=== PATIENT | female | born 1995 | race Caucasian/White ===

== ENCOUNTER 2021-04-05 09:48 | Inpatient (IN) ==
--- NOTE | 2021-03-14 11:32 | PAT Medication Instructions ---
Medication Instructions Date of Service March 14, 2021 Home Medications Medications norethindrone 1 mg-ethinyl estradiol 20 mcg (21)-iron 75 mg (7) tablet (04/20 ()) 1 tab PO HS Continue as directed norethindrone 1 mg-ethinyl estradiol 20 mcg (21)-iron 75 mg (7) tablet (04/20 ()) 1 tab PO HS (unless surgeon directs otherwise) OTHERWISE NOTHING TO EAT OR DRINK AFTER MIDNIGHT Other Notes If you have any questions please call us at [phone] or [phone] or [phone] or [phone]
--- NOTE | 2021-03-17 13:11 | Anesthesiology Consultation ---
Date of Service March 17, 2021 Assessment & Plan (1) Encounter for pre-operative examination: - surgeon ordered medical clearance. - check urine am DOS. - COVID screening: Per assessment on 03/17/2021: Travel screen negative, no known COVID-19 positive contacts or current COVID-19 related symptoms in past 2 weeks. Surgeon arranging preop COVID testing, scheduled 03/29/2021. Awaiting results. - Pt aware surgery has been cancelled due to current COVID surge, states would like to complete appointment and testing today, aware if surgery re-scheduled past 60 days will likely need to repeat labs. Chart Review Chart Review: Acceptable Risk for Surgery (pending pre-op medical clearance) and Patient seen in Pre Admission Testing Teaching & Discussion Pre-Anesthesia Teaching/Discussion Notes: Instructed NPO after midnight before surgery, except medications with 15 cc of water. Medication instructions provided according to the PAT guidelines. History Surgery Operation Date: 03/31/21 07:45 Proposed Procedures p L5-S Decompression Fusion, Spinal Cord Monitoring - Van Rondon DO Height/Weight Height: 5 ft 5 in Weight: 61.7 kg Allergies Allergy/AdvReac Type Severity Reaction Status Date / Time pineapple Allergy Intermediate Hives Verified 03/14/21 10:20 fluoxetine [From Prozac] Allergy Mild nausea/vomi Verified 03/14/21 10:20 ting Medications Home Medications Medication Instructions Recorded Confirmed Last Taken norethindrone 1 mg-ethinyl 1 tab PO HS 03/14/21 03/14/21 Unknown estradiol 20 mcg (21)-iron 75 mg (7) tablet (04/20 (28)) Past Medical History Medical History Anxiety no meds Chronic back pain Patient denies h/o stroke, seizures, heart attack, heart failure, DM, HTN, blood clots or blood transfusions. Exercise / Class Metabolic Activity II 4-5 Yardwork/Stairs/Walk up hill (slow 1 FOS d/t back pain, denies CP or SOB) Past Family History Family History Other No family history of adverse response to anesthesia Past Surgical History Surgical History History of microdiscectomy lumbar History of tonsillectomy and adenoidectomy History of tooth extraction Past Anesthesia History No Hx of Anesthesia Complications and No Family Hx of Anesthesia Complications History of PONV No Hx of PONV and No Hx of Motion Sickness Social History Smoking Status: Never smoker Do You Dip or Chew Tobacco: No Hx Alcohol Use: Yes alcohol intake frequency: holidays/special occasions only Hx Substance Use: No substance use type: does not use Review of Systems Occasional snoring, denies witnessed apneas or sleep studies. Patient denies chest pain, shortness of breath, dyspnea on exertion, reflux, dizziness, lightheadedness, fever, chills, cough, wheezing, or palpitations. Physical Exam Vital Signs Vitals BP 100/64 (She states this is usual range for BP) P 97 TEMP 97.5 SP02 100% on RA RESP 17 Physical Limited cervical extension range of motion without pain Full TMJ range of motion TMD 3.5 finger breaths Mallampati Score 3 Dentition: intact, missing upper right back and lower left back; denies loose or chipped teeth, caps/crowns, implants or bridges Lungs: normal respiratory effort. Clear throughout to auscultation, no adventitious breath sounds Cardiac: regular rate and rhythm, no murmurs noted Carotid arteries: negative bruit bilat Extremities: no distal extremity edema Lab Results Anesthesia Preop Results Results Anesthesia Widget: WBC 8.23 K/uL (4.8-10.8) 03/17/21 Hgb 13.4 g/dL (12.0-16.0) 03/17/21 Hct 39.9 % (37-47) 03/17/21 Plt 203 K/uL (130-400) 03/17/21 Na 140 mmol/L (136-145) 03/17/21 K 3.7 mmol/L (3.5-5.1) 03/17/21 Cl 109 mmol/L (98-107) H 03/17/21 CO2 26 mmol/L (21-32) 03/17/21 BUN 11 mg/dl (7-18) 03/17/21 Creat 0.94 mg/dl (0.6-1.2) 03/17/21 Glucose Level 77 mg/dl (70-99) 03/17/21 PT 10.0 Seconds (9.0-12.0) 03/17/21 PTT 30.4 Seconds (21.0-31.0) 03/17/21 INR 1.0 (0.9-1.1) 03/17/21 Urine Color Yellow 03/17/21 Urine Appearance Clear (Clear) 03/17/21 Urine pH 7.0 (4.5-7.5) 03/17/21 Urine Specific [place] 1.009 (1.000-1.030) 03/17/21 Urine Protein Negative (Negative) 03/17/21 Urine Glucose (UA) Negative (Negative) 03/17/21 Urine Ketones Negative (Negative) 03/17/21 Urine Blood Negative (Negative) 03/17/21 Urine Nitrite Negative (Negative) 03/17/21 Urine Bilirubin Negative (Negative) 03/17/21 Urine Urobilinogen Negative (Negative) 03/17/21 Urine Leukocyte Esterase Trace (Negative) H 03/17/21 Urine WBC (Auto) 1-5 /hpf (0-5) 03/17/21 Urine RBC (Auto) 0-4 /hpf (0-4) 03/17/21 Urine Hyaline Casts (Auto) 0 /lpf (0-5) 03/17/21 Urine Epithelial Cells (Auto) 10-20 /lpf (0-5) H 03/17/21 Urine Bacteria (Auto) Negative (Negative) 03/17/21 Blood Type A Positive 03/17/21 Antibody Screen NEGATIVE 03/17/21 Testing Electrocardiogram Date: 03/17/21 Normal sinus rhythm, rate 69 bpm. Chest X-Ray Date: 03/17/21 No acute chest disease.
--- NOTE | 2021-03-29 15:16 | History & Physical Report ---
Date of Service March 29, 2021 Assessment & Plan (1) Lumbar disc herniation with radiculopathy: Plan: Assessment recurrent lumbar disc condition L5-S1 with progressive neuro deficits including weakness. Plan at this time in light of her presentation and decline in status I am recommending urgent lumbar decompression and fusion to avoid permanent neuro deficit prickly at such young age. Risk benefits pros cons of turns were outlined in detail. History of Present Illness Chief Complaint: Back and bilateral leg pain with weakness Primary Care Provider: NO PCP This is a 26-year-old female that is undergone extensive course of nonoperative care and continues to complain of bilateral leg numbness exacerbated with any activity standing walking. She has bilateral sciatica left worse than right. She does have a history of undergoing laminectomy in 2017 and had her decline began roughly in September of this year. Allergies Allergy/AdvReac Type Severity Reaction Status Date / Time pineapple Allergy Intermediate Hives Verified 03/14/21 10:20 fluoxetine [From Prozac] Allergy Mild nausea/vomi Verified 03/14/21 10:20 ting Home Medications Medication Instructions Recorded Confirmed Type norethindrone 1 mg-ethinyl 1 tab PO HS 03/14/21 03/14/21 History estradiol 20 mcg (21)-iron 75 mg (7) tablet (04/20 (28)) Past Med/Surg History Medical History Anxiety no meds Chronic back pain Surgical History History of microdiscectomy lumbar History of tonsillectomy and adenoidectomy History of tooth extraction Family History Other No family history of adverse response to anesthesia Social History Smoking Status: Never smoker Second Hand Exposure: No; Hx Alcohol Use: Yes Hx Substance Use: No Preferred Language: Tajik Communication Ability: Effective Clinical Advisor Required: No Beliefs That Will Affect Care: None Current Living Situation: Spouse and Family Current Living Situation Comment: Lives with and 4 kids Feels Safe at Home: Yes Assistive Devices: Contacts and Glasses Physical Exam Physical Exam: On exam she is in obvious distress. She exhibits severe tension signs with straight leg raising bilaterally. There is evidence of deficits at L4 minus over 5 to left dorsiflexion extensor hallucis longus with 5 or 5 quadriceps bilaterally.
[~2021-04-05 09:48] MED LIST: ACETAMINOPHEN 500 MG TAB PO SCH; CeleBREX 200 MG CAP PO SCH; GABAPENTIN 900 MG DOSE PO SCH; LR 15ML/HR IV SCH; ceFAZolin 1000MG 1,000 MG/7.5 ML SYR IV SCH
[2021-04-05] MEDS ORDERED: PROMETHAZINE HCL 12.5 MG in SODIUM CHLORIDE 0.9% 50 ML IV PRN ×2 (12:18→16:18)
[2021-04-05] MEDS ORDERED: ONDANSETRON INJ 2 MG/ML 2 ML VIAL IV PRN ×2 (12:18→16:18)
[2021-04-05] MEDS ORDERED: HYDROmorphone INJ 2 MG/ML SYR/VIAL IV PRN (12:18)
[2021-04-05] MEDS ORDERED: ATROPINE SULFATE 0.1 MG/ML 10ML SYR IV PRN (12:18)
[2021-04-05] MEDS ORDERED: ePHEDrine sulfate 50 MG/ML AMP IV PRN (12:18)
[2021-04-05] MEDS ORDERED: SCOPOLAMINE 1 MG TDSY TD ONE ×2 (12:18→12:21)
--- NOTE | 2021-04-05 12:41 | History & Physical Bridge Note ---
Date of Service April 05, 2021 History & Physical Bridge Note I have examined the patient, reviewed the History & Physical and in the interval since the performance of the History & Physical I have noted the following changes of clinical significance: no changes noted
--- NOTE | 2021-04-05 12:42 | History & Physical Report ---
Date of Service April 05, 2021 Assessment & Plan (1) Lumbar disc herniation with radiculopathy: Plan: L5-S1 decompression fusion History of Present Illness Chief Complaint: Back and bilateral leg pain Primary Care Provider: NO PCP This is a 26-year-old female who presents with concerns of back and leg pain. Failing since course of nonoperative care is here for surgical invention. Allergies Allergy/AdvReac Type Severity Reaction Status Date / Time pineapple Allergy Intermediate Hives Verified 04/05/21 10:18 fluoxetine [From Prozac] Allergy Mild nausea/vomi Verified 04/05/21 10:18 ting Home Medications Medication Instructions Recorded Confirmed Type norethindrone 1 mg-ethinyl 1 tab PO HS 03/14/21 04/05/21 History estradiol 20 mcg (21)-iron 75 mg (7) tablet (04/20 (28)) Past Med/Surg History Medical History Anxiety no meds Chronic back pain Surgical History History of microdiscectomy lumbar History of tonsillectomy and adenoidectomy History of tooth extraction Family History Other No family history of adverse response to anesthesia Social History Smoking Status: Never smoker Second Hand Exposure: No; Do You Dip or Chew Tobacco: No; Tobacco Cessation Education Requested by Patient: No Hx Alcohol Use: Yes Hx Substance Use: No Preferred Language: Sami Communication Ability: Effective Credit Administration Officer Required: No Beliefs That Will Affect Care: None Current Living Situation: Spouse and Family Current Living Situation Comment: Lives with and 4 kids Other Information That Helps Us Care for You: No Feels Safe at Home: Yes Safety Concerns: Feels Safe At This Time Assistive Devices: Contacts and Glasses Physical Exam Physical Exam: Patient is alert and oriented Heart regular rhythm Lungs clear Results & Data ([facility]) Vital Signs (Past 12 Hours) Vital Signs Temp Pulse Resp BP Pulse Ox 04/05/21 10:19 36.9 C 94 H 18 132/77 99
[2021-04-05] MEDS ORDERED: EPINEPHrine INJ 1 MG/ML AMP ONE (12:53)
[2021-04-05] MEDS ORDERED: BUPIVACAINE 0.5 % 5 MG/1 ML MPF 30ML VIAL ONE (12:54)
[2021-04-05] MEDS ORDERED: ROCURONIUM BROMIDE 10 MG/ML 5 ML VIAL IV ONE ×2 (12:56→13:57)
[2021-04-05] MEDS ORDERED: PROPOFOL IV EMULSION 10 MG/ML 20 ML VIAL IV ONE (12:56)
[2021-04-05] MEDS ORDERED: LIDOCAINE 2% 2 ML VIAL/AMP(20MG/ML) INFIL ONE (12:56)
[2021-04-05] MEDS ORDERED: DEXAMETHASONE SOD INJ 4 MG/ML VIAL ONE (12:56)
[2021-04-05] MEDS ORDERED: ONDANSETRON INJ 2 MG/ML 2 ML VIAL ONE (12:56)
[2021-04-05] MEDS ORDERED: MIDAZOLAM HCL 1 MG/ML 2ML VIAL ONE (12:57)
[2021-04-05] MEDS ORDERED: fentaNYL citrate 100 MCG/2 ML VIAL ONE (12:57)
[2021-04-05] MEDS ORDERED: FLOSEAL HEMOSTATIC MATRIX 10ML TOP ONE (13:47)
[2021-04-05] MEDS ORDERED: GLYCOPYRROLATE 0.2 MG/ML VIAL ONE (13:58)
[2021-04-05] MEDS ORDERED: NEOSTIGMINE METHYLSULFATE 1 MG/ML 10ML VIAL ONE (13:58)
--- NOTE | 2021-04-05 14:37 | Operative Report ---
Post Operative Report Pre & Post Diagnosis Operation Date: 04/05/21 11:35 Pre-Op Diagnosis: Lumbar Disc Herniation with Radiculopathy L5-S1 Post-Op Diagnosis: Lumbar Disc Herniation with Radiculopathy L5-S1 I identified the patient and participated in the time-out.: Yes Procedure Operation Date: 04/05/21 11:35 Actual Procedures #1 revision decompression with bilateral medial facetectomies and foraminotomies L5-S1. #2 posterior spinal fusion L5-S1. #3 placement posterior instrumentation L5-S1. #4 interbody fusion L5-S1. #5 placement of titanium 11 x 26 mm cage at L5-S1. #6 placement of locally harvested morselized autograft and posterior gutters. #7 placement of I factor combined with V toss in the interbody space and posterior lateral gutters. Surgeon Van Rondon, Bedspread Inspector [employer] [place] Estimated Blood Loss 50 Findings Consistent with Post-Op Diagnosis Specimens None Indications This is a 26-year-old female presents with above-mentioned diagnosis after failing extensive course of nonoperative care is here for the above-mentioned procedure. Description of Procedure Patient was met with identified informed consent obtained. Patient was then taken to the operative suite underwent a patient placed in a prone position the [place] table top Buster frame. All bony prominences well-padded eyes inspected to ensure no external pressure placed upon the. This point the lumbar spine was prepped and draped in a sterile fashion. Sharp dissection with the assistance of Bovie cautery was performed down to and exposing the remaining lamina transverse processes of L5 and the sacral ala bilaterally. From caudal to cephalad fashion revision complete laminectomy of L5 was performed including bilateral medial facetectomies and foraminotomies addressing all spinal stenosis. Pedicle screws were then placed in L5 and S1 levels bilaterally with assistance of fluoroscopy and the properly sized ara placed. By way of a transforamen approach on the right complete discectomy of L5-S1 was performed endplates curetted to subcortical being bone and the 11 x 26 mm titanium cage filled with I factor tapped in position. The rods then compressed locked into final position bilaterally. Transverse processes of L5 and sacral ala burred to subcortical bleeding bone. I factor combined with V toss and locally harvested morselized autograft was placed in the posterior gutters. 15 round JAYLON drain inserted. The incision was then closed with 1 Vicryl the fascia 2-0 Vicryl subcutaneously and 4 Monocryl for final skin closure. Steri-Strip sterile dressing was placed. Patient waken taken PACU stable condition. Please note spinal cord monitoring was utilized at the procedure no changes noted. Lastly [employer] [place] was present at the entire surgery and while the patient positioning complex portions of the surgery and final skin closure. I attest to the content of the Intraoperative Record and any orders documented therein. Any exceptions are noted below.
--- NOTE | 2021-04-05 14:48 | Fluoroscopy Report ---
FL lumbar spine 2-3V CLINICAL HISTORY: L5-S1 decompression and fusion COMPARISON STUDY: None. FLUOROSCOPY TIME: 24 seconds. FINDINGS: 2 views of the lumbar spine demonstrate posterior decompression and fusion at L5-S1 with pe dicle screws and rods. A disc spacer is in place. The hardware appears intact. IMPRESSION: Fluoroscopic assistance provided for L5-S1 posterior decompression and fusion ACT 112: Negative or not required by law. Electronically signed by: Erik Russell M.D. 04/05/2021 2:47 PM
[2021-04-05] MEDS: fentaNYL citrate 100 MCG/2 ML VIAL IV PRN ×2 (15:00→15:15)
--- NOTE | 2021-04-05 15:37 | Anesthesiology Progress Note ---
Date of Service April 05, 2021 Anesthesia Post Procedure Vital Signs Vital Signs: Temp Pulse Pulse Resp BP Pulse Ox 04/05/21 15:30 36.3 C L 60 97 H 104/60 100 04/05/21 15:20 60 99 H 102/61 100 04/05/21 15:10 60 21 104/58 L 99 04/05/21 15:00 66 12 109/67 100 04/05/21 14:50 36.3 C L 84 20 107/65 100 04/05/21 10:19 36.9 C 94 H 18 132/77 99 Pain Intensity Back: Pain Intensity: 2 Transfer of Care Handoff Completed per policy Notes Mental Status: alert / awake / arousable and participated in evaluation Patient Amnestic to Procedure: Yes Nausea / Vomiting: adequately controlled Pain: adequately controlled Airway Patency, RR, SpO2: stable & adequate BP & HR: stable & adequate Hydration State: stable & adequate Anesthetic Complications: no major complications apparent and Pt Satisfied with anesthetic care
[2021-04-05] MEDS ORDERED: diphenhydrAMINE Capsule 25 MG CAP PO PRN (16:18)
[2021-04-05] MEDS ORDERED: DO NOT ADMINISTER PNEUMOCOCCAL VACCINE PRN (16:18)
[2021-04-05] MEDS ORDERED: HYDROmorphone INJ 1 MG/ML SYRINGE IV PRN (16:18)
[2021-04-05] MEDS ORDERED: LORazepam 0.5 MG/1 ML VIAL IV PRN (16:18)
[2021-04-05] MEDS ORDERED: MAGNESIUM HYDROXIDE SUSP 30 ML UDC PO PRN (16:18)
[2021-04-05] MEDS ORDERED: NALOXONE HCL 0.4 MG/1 ML VIAL/CARP IV PRN (16:18)
[2021-04-05] MEDS ORDERED: METOCLOPRAMIDE HCL INJ 5 MG/ML 2 ML VIAL IV PRN (16:18)
[2021-04-05] MEDS ORDERED: DO NOT ADMINISTER FLU VACCINE PRN (16:18)
[2021-04-05] MEDS ORDERED: bisacodyL 10 MG SUPP PR PRN (16:18)
[2021-04-05] MEDS ORDERED: ONDANSETRON 4 MG OD TAB PO PRN (16:18)
[2021-04-05] MEDS ORDERED: hydrOXYzine HCl 25 MG TAB PO PRN (16:18)
[2021-04-05] MEDS ORDERED: LORazepam 0.5 MG TAB PO PRN (16:18)
[2021-04-05] MEDS ORDERED: FAMOTIDINE 20 MG TAB PO PRN (16:18)
[2021-04-05] MEDS ORDERED: SOD PHOSPHATE/SOD BIPHOSPHATE ENEMA 132 ML BTL PR PRN (16:18)
[2021-04-05] MEDS ORDERED: ACETAMINOPHEN 500 MG TAB PO PRN (16:18)
[2021-04-05] MEDS ORDERED: ALUMINUM/MAGNESIUM SUSP 30 ML UDC PO PRN (16:18)
[2021-04-05] MEDS ORDERED: HYDROmorphone INJ 0.5 MG/0.5 ML SYR IV PRN (16:18)
[2021-04-05] MEDS: CHECK SCOPOLAMINE PATCH PLACEMENT SCH ×2 (17:00→23:08)
[2021-04-05] MEDS: KETOROLAC TROMETHAMINE 15 MG/ML VIAL IV SCH ×2 (17:00→22:36)
[2021-04-05] MEDS: LACTATED RINGER'S 1,000 ML IV SCH (17:01)
[2021-04-05] MEDS: traMADol HCL 50 MG TABLET PO PRN (19:49)
[2021-04-05] MEDS: ACETAMINOPHEN 1,000 MG/100 ML VIAL IV PRN (19:50)
[2021-04-05] MEDS: DOCUSATE SODIUM/SENNA 50/8.6MG TAB PO SCH (20:42)
[2021-04-05] MEDS: ceFAZolin 1000MG 1,000 MG/7.5 ML SYR IV SCH (22:36)
[2021-04-06] MEDS: LACTATED RINGER'S 1,000 ML IV SCH ×2 (03:13→13:39)
[2021-04-06] MEDS: traMADol HCL 50 MG TABLET PO PRN (05:37)
[2021-04-06] MEDS: ACETAMINOPHEN 1,000 MG/100 ML VIAL IV PRN (05:38)
[2021-04-06] MEDS: ceFAZolin 1000MG 1,000 MG/7.5 ML SYR IV SCH (05:38)
[2021-04-06] MEDS: KETOROLAC TROMETHAMINE 15 MG/ML VIAL IV SCH ×2 (05:40→10:47)
[2021-04-06] MEDS: POLYETHYLENE (MIRALAX) 17 GM PACK PO SCH ×4 (05:51→23:09)
[2021-04-06 06:11] LABS: Basophils # (auto) 0.01 K/uL (0-0.2); Basophils % (auto) 0.1 %; Eosinophils # (auto) 0.01 K/uL (0-0.5); Eosinophils % (auto) 0.1 %; Hematocrit (blood only) 34.1 % (37-47); Hemoglobin 11.4 g/dL (12.0-16.0); Immature Granulocytes # (auto) 0.02 K/uL (0.00-0.02); Immature Granulocytes % (auto) 0.2 %; Lymphocytes % (auto) 11.7 %; Mean Corpuscular Hemoglobin 31.2 pg (25-34); Mean Corpuscular Hgb Conc 33.4 g/dL (32-36); Mean Corpuscular Volume 93.4 fL (80-100); Mean Platelet Volume 11.1 fL (7.4-10.4); Monocytes # (auto) 0.88 K/uL (0.11-0.59); Monocytes % (auto) 6.9 %; Neutrophils # (auto) 10.39 K/uL (1.4-6.5); Platelet Count 204 K/uL (130-400); RDW Coefficient of Variation 12.7 % (11.5-14.5); RDW Standard Deviation 43.6 fL (36.4-46.3); Red Blood Count 3.65 M/uL (4.2-5.4); White Blood Count 12.81 K/uL (4.8-10.8)
[2021-04-06 06:42] LABS: BUN Creatinine Ratio 12.9 (10-20); Calcium 8.3 mg/dl (8.5-10.1); Creatinine Clr Calc Pharmacy 114.2 ml/min; Est GFR (African American) 139.3 ml/min; Est GFR (Non-African American) 120.2 ml/min
[2021-04-06] MEDS: CHECK SCOPOLAMINE PATCH PLACEMENT SCH ×3 (07:48→23:09)
--- NOTE | 2021-04-06 08:21 | Orthopedic Progress Note ---
Date of Service April 06, 2021 Assessment & Plan (1) Lumbar disc herniation with radiculopathy: Plan: This time continue physical therapy monitor JAYLON operatively discharge home tomorrow. Admission and Anticipated Discharge Date Admission Date: April 05, 2021 Subjective Back pain controlled leg pain markedly improved Physical Exam Physical Exam: Patient is good strength testing patient comfortable. Results & Data ([facility]) Vital Signs (Past 12 Hours) Vital Signs Temp Pulse Resp BP Pulse Ox 04/06/21 07:37 37.0 C 61 16 92/51 L 98 04/06/21 02:52 36.7 C 67 16 95/53 L 98 04/05/21 22:26 36.4 C L 72 15 93/55 L 96
[2021-04-06] MEDS ORDERED: dexAMETHasone 6 MG in SYRINGE 0 ML IV SCH (09:00)
[2021-04-06] MEDS: oxyCODONE HCL IR 5 MG TAB (IMMEDIATE RELEASE) PO PRN ×2 (17:40→22:21)
[2021-04-06] MEDS: DOCUSATE SODIUM/SENNA 50/8.6MG TAB PO SCH (22:20)
[2021-04-07] MEDS: POLYETHYLENE (MIRALAX) 17 GM PACK PO SCH ×2 (05:41→12:00)
[2021-04-07] MEDS: oxyCODONE HCL IR 5 MG TAB (IMMEDIATE RELEASE) PO PRN ×3 (05:54→16:31)
[2021-04-07] MEDS: traMADol HCL 50 MG TABLET PO PRN (08:13)
[2021-04-07 08:19] VITALS: BP 94/58; PULSE 70; TEMP 97.7; O2SAT 98
--- NOTE | 2021-04-07 08:52 | Discharge Summary ---
Date of Service April 07, 2021 Admission HPI Per Admitting Provider This is a 26-year-old female who presents with concerns of back and leg pain. Failing since course of nonoperative care is here for surgical invention. Principal Diagnosis Lumbar spinal stenosis with radiculopathy Discharge Data Allergies Allergy/AdvReac Type Severity Reaction Status Date / Time pineapple Allergy Intermediate Hives Verified 04/05/21 10:18 fluoxetine [From Prozac] Allergy Mild nausea/vomi Verified 04/05/21 10:18 ting Procedures Performed Operation Date: 04/05/21 11:35 Actual Procedures p L5-S1 Decompression and Fusion, Interbody Fusion L5-S1, with Application of I Factor and Vitoss Bone Graft , Spinal Cord Monitoring(Not Applicable) - Van Rondon DO Ordered Studies 04/05/21 11:35 [place] lumbar spine 2-3V Routine Hospital Course (1) Lumbar disc herniation with radiculopathy: Patient with lower depression fusion tolerated this well sling orthopedic for possibly postoperative when she is up and ambulating wrist. #2 back pain well controlled. I suspected testing. JAYLON drain decreasing the appropriately. Simply discharged home. Discharge orders instructions from the chart for further review. Total Time Total Time Spent Total Time Spent (In Minutes): 20 minutes Discharge Plan Discharge Items Patient Disposition: Home - Self-Care Reason For Visit: Spinal Stenosis of Lumbar Region with Radiculopath Discharge Diagnosis: Lumbar spinal stenosis with radiculopathy Activity: As commented below Non-emergency contact: Primary Care Provider Call non-emergency contact if: you have any medication questions Follow-up/Referrals: PCP,NO [Primary Care Provider] - Diet: Regular Addtl Attending Provider Instructions: ACTIVITY RECOMMENDATIONS: SELF CARE INSTRUCTIONS AFTER THORACIC/LUMBAR FUSIONS 1. You may walk to your tolerance. It is good exercise for your legs and back. Expect some back and intermittent leg aches and pains. 2. You may perform "counter-top" level activities (make a sandwich, brian with a project, etc.). 3. No bending or lifting of more than 10 pounds or back twisting of any nature (roll like a log when turning in bed). 4. You may ride in a car for 20-30 minutes at a time. No driving until after your first visit with your doctor. 5. Frequent changes of position and restricting sitting to 30 minutes at a time will help limit the amount of back spasms and stiffness you may experience. 6. You may discontinue the use of ambulatory aids (cane, crutches, etc.) once your strength and confidence allow. 7. You may farrowing worker the shower and let water strike your incision when you arrive home at least once daily. Do not take a tub bath, sit in a hot tub or go into a swimming pool until after your first recheck in the office. SPECIAL CARE INSTRUCTIONS: VERY IMPORTANT TO READ AND REVIEW A. Your surgical incision has been closed with a cosmetic suture under the skin that will dissolve in about 6 weeks. In 14 days, you can use a pair of clean scissors and cut the suture that is left outside of the skin at the ends of your incision. 1. The small skin tapes can be removed 7 days after surgery if they have not fallen off by that point. 2. You may keep the wound open to air as much as possible to promote healing after post-op day number 5 unless told otherwise by your doctor. 3. If you think the wound looks like it is becoming infected (redness or worsening drainage) and/or you are experiencing fever, chill or worsening back pain and muscle spasms, contact the office so that we may evaluate you as soon as possible. B. Complications are uncommon, but please contact us if you have any signs or symptoms of: 1. wound infection (fever higher than 102.5 degrees F, redness, separation of wound, drainage, or increasing pain from the incision) 2. blood clots in legs (pain, swelling, redness and warmth in legs) 3. urinary tract infection (fever higher than 102.5 degrees F, burning upon urination or increased frequency of urination) 4. nerve problems (inability to walk on your toes or heels, numbness, loss of bowel or bladder control) 5. any other symptoms that concern you C. Please call the office at if you have any concerns or questions about your operation or recovery. D. No smoking! Smoking drastically decreases the chance of a solid fusion. E. Do not take any anti-inflammatory medications (Indocin, Advil, Motrin, Aspirin, Naprosyn, etc.) as these may inhibit the chance of a solid fusion. Tylenol is okay to take for pain. MANAGING PAIN AFTER SPINAL SURGERY 1. Narcotic medication is intended for short-term use and will be provided for surgical pain. Surgical pain usually lasts for a period of 4-6 weeks. Narcotic medication includes Percocet, Vicodin, Darvocet, Tylenol #3 or Lortab. 2. Longer-term pain is more appropriately treated with non-narcotic medication such as Tylenol ES. 3. Muscle spasm is not appropriately treated with narcotics. Muscle relaxers such as Soma, Flexeril or Skelaxin can be used along with Tylenol ES. 4. Remember that we all live with some "aches and pains". This is not unusual or uncommon after an injury or as we get older. a. Back pain is expected and may include muscle spasms for 4 to 6 weeks after surgery. The pain should gradually improve. If the pain worsens for no apparent reason, please contact the office. b. Intermittent leg pain may also be experienced and should not be concerned about unless it worsens for no apparent reason. If so, please contact the office. 5. We will provide appropriate medication within the normal guidelines of their prescribed use. We will also be very cautious and aware of potential abuse and extended duration of patients' medication needs. a. Pain medications are for your comfort and to assist with sleep and rest so that the tissue can heal. They are not provided in order to return to normal activity and should not be used through the day. To do so or worsening pain at night can result from ongoing tissue damage and development of tolerance to the prescribed medicine. 6. Please allow 2-3 days to process refills. Prescriptions will not be mailed but must be picked up at the office. FOLLOW UP VISIT: Keep your scheduled follow-up appointment. Any questions, please call the office at . Pending Studies at Discharge: No Stand-Alone Forms: [employer], Smoking Cessation Medications and DC Order Prescriptions: New tramadol 50 mg tablet 50 mg PO Q6H PRN (Reason: pain, moderate) Qty: 30 RF: 0 oxycodone 5 mg tablet 5 mg PO Q6H PRN (Reason: pain, severe) Qty: 30 RF: 0 Continued norethindrone-e.estradiol-iron [Junel FE 04/20 (28)] 1 mg-20 mcg (21)/75 mg (7) Tablet 1 tab PO HS RF: 0 Discharge Orders: Discharge Order (Routine); Ordered 04/07/21 Ordered By: Van Rondon Admission Data Admit Date/Time: 04/05/21 14:41 Attending Provider: Van Rondon Admit Provider: Van Rondon Primary Care Provider: PCP,NO
[2021-04-07] MEDS: CHECK SCOPOLAMINE PATCH PLACEMENT SCH ×3 (11:53→13:58)
== END 2021-04-07 17:03 | disposition home or self-care (01) | DRG 455 ==
LOC: ASU 09:48 → 3E 14:41
DX: Z88.8 Allergy status to other drugs, medicaments and biological substances; Z98.890 Other specified postprocedural states; M51.17 Intervertebral disc disorders with radiculopathy, lumbosacral region; Z91.018 Allergy to other foods; Z79.3 Long term (current) use of hormonal contraceptives